=== PATIENT | male | born 1995 | race African-American/Black ===

== ENCOUNTER 2023-03-22 18:02 | Emergency (ER) | payer MEDICAID, OTHER ==
[~2023-03-22] VITALS: Ht 177.8 cm; Wt 73.0 kg
[2023-03-22 18:04] VITALS: O2SAT 99
[2023-03-22] MEDS ORDERED: DIPHENHYDRAMINE 50MG/ML VIAL IM PRN (18:15)
[2023-03-22] MEDS ORDERED: LORAZEPAM 2MG/ML CPJ IM PRN (18:15)
[2023-03-22] MEDS ORDERED: HALOPERIDOL LACTATE 5MG/ML VIAL IM ONE (18:15)
[2023-03-22] MEDS ORDERED: SODIUM CHLORIDE 0.9% 1,000 ML IV ONE (18:45)
[2023-03-22 18:54] LABS: HEMATOCRIT. 42.6 % (42.0-52.0); HEMOGLOBIN. 14.5 g/dL (14.0-18.0); MEAN CORPUSCULAR HEMOGLOBIN 31.6 pg (28.0-32.0); MEAN CORPUSCULAR VOLUME 92.6 fL (80.0-94.0); MEAN PLATELET VOLUME 7.3 fl (7.4-10.4); PLATELET 217 x1000/uL (130-400); RED CELL DISTRIBUTION WIDTH 13.9 % (11.6-14.6)
[2023-03-22 19:01] LABS: CHLORIDE 115 mEq/L (98-107)
[2023-03-22 19:10] LABS: ETHANOL BLOOD < 10 mg/dL (-10)
[2023-03-22 19:52] LABS: PLATELET ESTIMATE NORMAL
[2023-03-22 19:53] LABS: CLARITY URINE CLEAR (CLEAR); COLOR URINE YELLOW (YELLOW); KETONES URINE TRACE (NEGATIVE); LEUKOCYTE ESTERASE URINE NEGATIVE (NEGATIVE); NITRITE URINE NEGATIVE (NEGATIVE); OCCULT BLOOD URINE NEGATIVE (NEGATIVE); PH URINE 6.5 (4.5-8.0); PROTEIN URINE TRACE (NEGATIVE); SPECIFIC GRAVITY URINE 1.018 (1.005-1.030)
[2023-03-22 20:39] LABS: *AMPHETAMINES SCREEN URINE NEGATIVE (NEGATIVE); *BARBITURATES SCREEN URINE NEGATIVE (NEGATIVE); *BENZODIAZEPINES SCREEN URINE NEGATIVE (NEGATIVE); *COCAINE SCREEN URINE PRESUMTIVE POSITIVE (NEGATIVE); CANNABINOID URINE SCREEN PRESUMTIVE POSITIVE (NEGATIVE); METHADONE URINE SCREEN NEGATIVE (NEGATIVE); OPIATES URINE SCREEN NEGATIVE (NEGATIVE); PHENCYCLIDINE URINE SCREEN NEGATIVE (NEGATIVE)
[2023-03-22 22:20] VITALS: BP 121/59; PULSE 99; RESP 20; TEMP 98.4
== END 2023-03-22 22:30 | disposition home or self-care (01) ==
LOC: ER 18:02
DX: R41.82 Altered mental status, unspecified (principal)
CPT/HCPCS: 80053; 80305; 81003; 80320; 85025; 84484; 36415; 93005; 96372; 99284; J1630; J7030; Z7610; G0480